=== PATIENT | male | born 1955 | race African-American/Black ===

== ENCOUNTER 2016-11-29 07:33 | Outpatient (CLI) ==
[2016-09-05 07:18] VITALS: BMI 34.2
[2016-11-29 08:11] LABS: BASOPHILS # (AUTO) 0.1 K/uL (0-0.2); EOSINOPHILS # (AUTO) 0.4 K/ul (0.0-0.7); EOSINOPHILS % (AUTO) 4.7 % (0.0-7.0); HEMATOCRIT 26.8 % (42.0-52.0); HEMOGLOBIN 8.6 g/dl (14.0-18.0); IMMATURE GRANULOCYTE % (AUTO) 0.5 % (0.0-5.0); LYMPHOCYTES # (AUTO) 1.3 K/uL (0.60-3.4); LYMPHOCYTES % (AUTO) 16.7 (10.0-50.0); MEAN CORPUSCULAR HEMOGLOBIN 29.2 pg (27.0-31.0); MEAN CORPUSCULAR HGB CONC 32.1 (31.8-35.4); MEAN CORPUSCULAR VOLUME 90.8 fl (80.0-94.0); MONOCYTES # (AUTO) 0.8 K/uL (0.4-2.0); MONOCYTES % (AUTO) 10.1 (0-10); NEUTROPHILS # (AUTO) 5.3 K/ul (2.0-6.9); PLATELET COUNT 242 10^3/uL (140-440); RED BLOOD COUNT 2.95 10^6/ul (4.70-6.10); WHITE BLOOD COUNT 7.89 K/ul (4.2-10.2)
[2016-11-29 08:33] LABS: CHOL/HDL RATIO 3.8 (4.5-6.4)
== END 2016-11-29 07:34 | disposition home or self-care (01) ==
LOC: LAB 07:33 → NONPT 07:34
PROVIDERS: ATTEND Emergency Medicine
DX: E11.9 Type 2 diabetes mellitus without complications (principal); I10 Essential (primary) hypertension; E78.5 Hyperlipidemia, unspecified; N18.9 Chronic kidney disease, unspecified; D64.9 Anemia, unspecified; E55.9 Vitamin D deficiency, unspecified; Z12.5 Encounter for screening for malignant neoplasm of prostate
CPT/HCPCS: 80061; 82607; 83036; 84443; 85025

== ENCOUNTER 2016-12-01 09:45 | Outpatient (CLI) | payer OTHER ==
[2016-09-05 07:18] VITALS: BMI 34.2
[2016-12-01 10:12] LABS: HEMOGLOBIN 8.4 g/dl (14.0-18.0)
== END 2016-12-01 09:46 | disposition home or self-care (01) ==
LOC: NONPT 09:45
PROVIDERS: ATTEND Internal Medicine Nephrology
DX: E11.9 Type 2 diabetes mellitus without complications (principal); I10 Essential (primary) hypertension; E78.5 Hyperlipidemia, unspecified
CPT/HCPCS: 85014; 85018

== ENCOUNTER → 2017-05-26 | Outpatient (CLI) | payer OTHER ==
[2016-09-05 07:18] VITALS: BMI 34.2
== END ==
LOC: AMBL 17:23
PROVIDERS: ATTEND Emergency Medicine
DX: Z99.3 Dependence on wheelchair (principal); Z89.612 Acquired absence of left leg above knee; Z89.611 Acquired absence of right leg above knee

== ENCOUNTER 2017-06-17 12:55 | Emergency (ER) ==
[2017-06-17 13:00] VITALS: BP 138/83; TEMP 99.2; BMI 31.7
--- NOTE | 2017-06-17 13:26 | ED.PDOC ---
General ED Provider: Dr. BRUCE LUCIO Chief Complaint: Non-specific Complaint Stated Complaint: can not hear anything, thinks ears clogged up Time Seen by Physician: 13:22 Mode of Arrival: Walk-In Information Source: Patient Primary Care Provider: LUDWIG HARRIS Nursing and Triage Documentation Reviewed and Agree: Yes EENT Complaint Exam - Ear Complaint/Exam Symptoms Are: Still present Timing: Constant Initial Severity: Mild Current Severity: Mild Character: Reports: Dull pain Aggravating: Reports: None Alleviating: Reports: None Associated Signs and Symptoms: Denies: Ear trauma, Ear swelling, Discharge, Fever, Hearing loss, Bleeding, Sore throat, Headache, URI symptoms, Foreign body sensation, Rash, Pain to external ear, Pain to external face Ear Surgical History: None Vesicles to External Pinna: No Vesicles to Tragus: No TMJ Tenderness: None Mastoid Tenderness: None Tragal Tenderness: None Material in Canal: Present: Cerumen Differential Diagnoses: Cerumen Impaction Review of Systems - Review Of Systems Constitutional: Reports: No symptoms Eyes: Reports: No symptoms Ears, Nose, Mouth, Throat: Reports: Ear pain (clogged up) Respiratory: Reports: No symptoms Cardiac: Reports: No symptoms GI: Reports: No symptoms : Reports: No symptoms Musculoskeletal: Reports: No symptoms Skin: Reports: No symptoms Neurological: Reports: No symptoms Endocrine: Reports: No symptoms Hematologic/Lymphatic: Reports: No symptoms All Other Systems: Reviewed and Negative Past Medical History - Past Medical History Previously Healthy: Yes Endocrine: Reports: DM 2, Hyperthyroid, Dyslipidemia Cardiovascular: Reports: Hypertension, A-Fib Respiratory: Reports: None Hematological: Reports: Anemia Gastrointestinal: Reports: GERD Genitourinary: Reports: CKD (on hd) Neuro/Psych: Reports: None Musculoskeletal: Reports: None Cancer: Reports: None Other Pertinent Past Medical History: Hyponatremia, obesity - Surgical History General Surgical History: Reports: Orthopedic (s/p bilateral above knee amputation), Lap Band, Other (right above knee amputee, shunt to right arm), Unknown - Family History Family History: Reports: Unknown - Social History Smoking Status: Current every day smoker Hx Substance Use: No Alcohol Screening: None Physical Exam - Physical Exam Appearance: Well-appearing, No pain distress, Well-nourished Eyes: BRET, EOMI, Conjunctiva clear ENT: Ears normal, Nose normal, Oropharynx normal, TMs Occluded Respiratory: Airway patent, Breath sounds clear, Breath sounds equal, Respirations nonlabored Cardiovascular: RRR, Pulses normal, No rub, No murmur GI/: Soft, Nontender, No masses, Bowel sounds normal, No Organomegaly Musculoskeletal: Normal strength, ROM intact, No edema, No calf tenderness Skin: Warm, Dry, Normal color Neurological: Sensation intact, Motor intact, Reflexes intact, Cranial nerves intact, Alert, Oriented Psychiatric: Affect appropriate, Mood appropriate Critical Care Note - Critical Care Note Total Time (mins): 0 Course - Course Vital Signs: Temp Pulse Resp BP Pulse Ox 06/17/17 12:55 99.2 F 88 20 138/83 98 Departure - Departure Time of Disposition: 13:30 Disposition: HOME SELF-CARE Discharge Problem: Excess ear wax Qualifiers: Laterality: bilateral Qualifier Code: (H61.23) Impacted cerumen, bilateral Instructions: Cerumen Impaction (ED) Condition: Good Pt referred to PMD for follow-up: Yes Additional Instructions: f/u [facility] please put the debrox 5 ml bid in each ear for 5 days Prescriptions: Carbamide Peroxide Otic [Debrox] 5 drop OT Q12H #1 vial Allergies/Adverse Reactions: Allergies No Known Drug Allergies Adverse Reaction (Verified 09/05/16 07:16) Home Medications: Ambulatory Orders Folic Acid 1 mg PO DAILY 01/31/14 Insulin Regular, Human [Humulin R] 1 unit SQ PRN PRN 01/25/15 Hydrocodone Bit/Acetaminophen [[place] 10-325] 1 each PO Q6HR PRN 01/13/16 Amiodarone HCl [Cordarone] 200 mg PO Q12HR 05/27/16 Aspirin [Aspirin Chewable] 81 mg PO DAILYWM 05/27/16 Atorvastatin Calcium [Lipitor] 5 mg PO BEDTIME 05/27/16 Cholecalciferol (Vitamin D3) [Vitamin D3] 50,000 unit PO MO 05/27/16 Clopidogrel Bisulfate [Plavix] 75 mg PO DAILY 05/27/16 Gabapentin 300 mg PO BEDTIME 05/27/16 Metoprolol Tartrate [Lopressor] 50 mg PO BID 05/27/16 Midodrine HCl [Midodrine] 5 mg PO DAILY 05/27/16 Propylthiouracil 100 mg PO Q12HR 05/27/16 Sennosides/Docusate Sodium [Senna-Docusate Sodium Tablet] 1 each PO BID Amoxicillin 500 mg PO Q8HR #21 tablet 09/05/16 Albuterol Sulfate [Proair Hfa] 2 puff IH PRN PRN 10/16/16 Ondansetron HCl [Zofran Tab] 4 mg PO PRN PRN 10/16/16 Promethazine HCl [Phenergan Tab] 25 mg PO PRN PRN 10/16/16 Carbamide Peroxide Otic [Debrox] 5 drop OT Q12H #1 vial 06/17/17
== END 2017-06-17 14:31 | disposition home or self-care (01) ==
LOC: ED 12:55
DX: H91.90 Unspecified hearing loss, unspecified ear (principal); H92.09 Otalgia, unspecified ear; H61.23 Impacted cerumen, bilateral; F17.210 Nicotine dependence, cigarettes, uncomplicated
CPT/HCPCS: 99282

== ENCOUNTER 2017-07-05 20:24 | Emergency (ER) ==
[2017-07-05 20:31] VITALS: TEMP 0; BMI 39.0
[2017-07-05] MEDS ORDERED: SODIUM BICARBONATE 7.5% IVP PRN (20:49)
[2017-07-05] MEDS: EPINEPHRINE 1:10,000 SYRINGE IV PRN ×3 (20:49→20:56)
--- NOTE | 2017-07-05 21:02 | ED.PDOC ---
Procedures - Intubation Indication: Present: Respiratory Insufficiency (arrest) Time of Intubation: 20:46 Type of Tube Used: Endotracheal Tube Size: 7 Cricoid Pressure Used: No Tube Antonio Used: Yes Position of Tube at Lip: 22 Number of Attempts: 1 Suction Used: No Glidescope Used: No CO2 Detector Used: Yes Lung Sounds Equal Bilaterally: Yes Intubation Complications: Present: No complications Tube Inserted By: Aguila Guadarrama CRNA Conscious Sedation - Pre-op Assessment Weight: 280 lb Surgical History: right above knee amputee, shunt to right arm. 1 CARDIAC STENT AUG 16, 2016. LAP BAND 2005. RIGHT SCROTUM HYDROCELE. GB. LEFT CATARACT REMOVAL - Medical History Past Medical History: Hypertension, Diabetes, Thyroid, Anemia, CHF, A-FIb, COPD , Renal Failure, Arthritis Other History: Hyponatremia, obesity, left total Knee arthroplasty w/revision, SLEEP APNEA
[2017-07-05] MEDS ORDERED: SODIUM CHLORIDE 1,000 ML IV STA (21:14)
[2017-07-05] MEDS ORDERED: PHENYLEPHRINE IVP ONE ×2 (21:15→21:23)
[2017-07-05] MEDS ORDERED: PHENYLEPHRINE IVP STA ×2 (21:28→21:48)
[2017-07-05 21:44] LABS: BASOPHILS # (AUTO) 0.1 K/uL (0-0.2); BASOPHILS % (AUTO) 0.3 % (0.0-3.0); EOSINOPHILS # (AUTO) 0.2 K/ul (0.0-0.7); EOSINOPHILS % (AUTO) 0.9 % (0.0-7.0); HEMATOCRIT 28.5 % (42.0-52.0); HEMOGLOBIN 9.4 g/dl (14.0-18.0); IMMATURE GRANULOCYTE % (AUTO) 9.4 % (0.0-5.0); LYMPHOCYTES # (AUTO) 4.4 K/uL (0.60-3.4); LYMPHOCYTES % (AUTO) 19.4 (10.0-50.0); MEAN CORPUSCULAR HEMOGLOBIN 29.7 pg (27.0-31.0); MEAN CORPUSCULAR VOLUME 90.2 fl (80.0-94.0); MONOCYTES # (AUTO) 0.5 K/uL (0.4-2.0); MONOCYTES % (AUTO) 2.2 (0-10); NEUTROPHILS # (AUTO) 15.5 K/ul (2.0-6.9); NEUTROPHILS % (AUTO) 67.8; PLATELET COUNT 86 10^3/uL (140-440); RED BLOOD COUNT 3.16 10^6/ul (4.70-6.10)
[2017-07-05 21:45] VITALS: BP 42/31
[2017-07-05] MEDS ORDERED: PHENYLEPHRINE ONE (21:48)
--- NOTE | 2017-07-05 21:59 | ED.PDOC ---
General ED Provider: Dr. LORI HINDS-ER Chief Complaint: Cardiac Arrest Stated Complaint: medics report bleeding from av fistula site right arm--they report "half of his blood volume"on the floor--had similar problem a few days ago--bleeding controlled with torniquet right arm Time Seen by Physician: 20:25 Mode of Arrival: Ambulance Information Source: EMT Exam Limitations: Clinical condition [facility] Nursing and Triage Documentation Reviewed and Agree: Yes Trauma/Injury Complaint Exam - Trauma Complaint/Exam Location of Pain or Injury: Reports: RUE Mechanism of Injury: Reports: Alleged non-accidental Symptoms Are: Still present Timing of Treatment: Immediate Initial Severity: Mild Current Severity: Moderate Character: Reports: Dull Aggravating: Reports: None Alleviating: Reports: None Associated Signs and Symptoms: Reports: Lethargy, Bleeding, Significant blood loss. Denies: LOC, Confusion, Memory loss, Vomiting, Bruising, Swelling, Extremity disuse, Painful respiration, Hoarseness, Dysphagia, Hemoptysis Related History: Reports: Similar episode Penetrating Injury Risk Factors: Reports: None Review of Systems - Review Of Systems Constitutional: Reports: Other Eyes: Reports: Other Ears, Nose, Mouth, Throat: Reports: No symptoms Respiratory: Reports: No symptoms Cardiac: Reports: No symptoms GI: Reports: No symptoms : Reports: No symptoms Musculoskeletal: Reports: No symptoms Skin: Reports: No symptoms Neurological: Reports: No symptoms Endocrine: Reports: No symptoms Hematologic/Lymphatic: Reports: Easy bleeding All Other Systems: Reviewed and Negative Past Medical History - Past Medical History Previously Healthy: Yes Endocrine: Reports: DM 2, Hyperthyroid, Dyslipidemia Cardiovascular: Reports: Hypertension, A-Fib Respiratory: Reports: None Hematological: Reports: Anemia Gastrointestinal: Reports: GERD Genitourinary: Reports: CKD (on hd) Neuro/Psych: Reports: None Musculoskeletal: Reports: None Cancer: Reports: None Other Pertinent Past Medical History: Hyponatremia, obesity - Surgical History General Surgical History: Reports: Orthopedic (s/p bilateral above knee amputation), Lap Band, Other (right above knee amputee, shunt to right arm), Unknown - Family History Family History: Reports: Unknown - Social History Smoking Status: Current every day smoker Hx Substance Use: No Alcohol Screening: None Lives: With family Physical Exam - Physical Exam Appearance: Obese Ill-appearing: Severe Eyes: BRET ENT: Ears normal, Nose normal, Oropharynx normal Neck: Supple Respiratory: Airway patent, Breath sounds clear, Breath sounds equal, Respirations nonlabored Cardiovascular: No murmur, Abnormal pulses (pulseless on arrival--cpr in progress) GI/: Soft Musculoskeletal: Limited ROM, Limited strength Skin: Warm Neurological: Unresponsive Psychiatric: Affect appropriate Interpretation - Radiology Interpretation Radiology Interpretation By: Radiologist Radiology Results: Negative Exam Interpreted: Portable CXR Procedures - Intubation Indication: Present: Altered Mental Status Medications: Yes: Succinylcholine Type of Tube Used: Endotracheal Tube Size: 7.5 Cricoid Pressure Used: Yes Tube Antonio Used: Yes Number of Attempts: 1 Suction Used: Yes Glidescope Used: Yes CO2 Detector Used: Yes Lung Sounds Equal Bilaterally: Yes Intubation Complications: Present: No complications Tube Inserted By: r keshia Tube Placement Verified by X-ray: Yes - Additional Procedures Additional Procedures: Other (interosseus line placed by ems) Re-Evaluation - Re-Evaluation Time of Re-Evaluation: 22:34 Status: Improved Vital Signs Stable: No Pain Level: 0 Appearance: NAD Lungs: Clear Skin: Warm and Dry Neuro: Other CV: RRR Physician Notification - Case Discussed Physician Notified: dr [email or web address] 22:30 Time of Notification: 22:34 Critical Care Note - Critical Care Note Total Time (mins): 60 Course - Course Hematology/Chemistry: 07/05/17 21:40 Orders, Labs, Meds: Lab Review 07/05/17 21:40 WBC 22.90 H RBC 3.16 L Hgb 9.4 L Hct 28.5 L MCV 90.2 MCH 29.7 MCHC 33.0 RDW Coeff of Rosie 15.3 H Plt Count 86 L Immature Gran % (Auto) 9.4 H Neut % (Auto) 67.8 Lymph % (Auto) 19.4 [place] % (Auto) 2.2 Eos % (Auto) 0.9 Baso % (Auto) 0.3 Immature Gran # (Auto) 2.2 H Neut # 15.5 H Lymph # 4.4 H Faulkner # 0.5 Eos # 0.2 Baso # 0.1 Orders Category Date Time Status CPR - ED ONLY Stat CARDIO 07/05/17 20:49 Ordered EKG-(ED ONLY) Stat CARDIO 07/05/17 21:17 Ordered VENTILATOR Routine CARDIO 07/05/17 22:25 Ordered TRANSFER TO OUTSIDE FACILITY .TO [facility] 07/05/17 21:59 Active ([place]) WRITE TRANSFER/SBAR NOTE ONCE CARE 07/05/17 21:59 Active DISCHARGE ASSESSMENT ONCE DISCHARGE 07/05/17 21:59 Active WRITE DISCHARGE NOTE ONCE DISCHARGE 07/05/17 21:59 Active ED IV/MEDIPORT/POWERPORT .ONCE EMERGENCY 07/05/17 20:49 Active BLOOD PRODUCT: PACKED RED BLOOD CELLS [PACKED CELLS] LAB 07/05/17 20:51 Ordered Stat CBC W/ AUTO DIFF Stat LAB 07/05/17 21:40 Completed COMPREHENSIVE METABOLIC PANEL Stat LAB 07/05/17 21:17 Ordered CREATINE KINASE Stat LAB 07/05/17 21:17 Ordered TROPONIN I Stat LAB 07/05/17 21:17 Ordered TYPE AND SCREEN Stat LAB 07/05/17 20:51 Ordered 0.9 % Sodium Chloride [Saline Flush] MEDS 07/05/17 20:49 Ordered 1 syr IVF PRN PRN Epinephrine [Epinephrine 1:10,000 Syringe] MEDS 07/05/17 20:49 Ordered 1 mg IV PRN PRN Phenylephrine Inj [Phenylephrine] MEDS 07/05/17 21:48 Discontinued 10 mg .ROUTE .STK-MED ONE Sodium Bicarb 7.5% [Sodium Bicarbonate 7.5%] MEDS 07/05/17 20:49 Ordered 44.6 meq IVP PRN PRN Sodium Chloride 0.9% [Sodium Chloride] 1,000 ml MEDS 07/05/17 21:14 Discontinued IV BOLUS CHEST, 1V AP ONLY Stat RADS 07/05/17 21:00 Ordered Medications Generic Name Dose Route Start Last Admin Trade Name Freq PRN Reason Stop Dose Admin Epinephrine HCl 1 mg 07/05/17 20:49 07/05/17 20:56 Epinephrine 1:10,000 Syringe IV 1 mg PRN PRN Administration DIRECTED BY PHYSICIAN-CODE Sodium Bicarbonate 44.6 meq 07/05/17 20:49 07/05/17 20:51 Sodium Bicarbonate 7.5% IVP 44.6 meq PRN PRN Administration DIRECTED BY PHYSICIAN-CODE Sodium Chloride 1 syr 07/05/17 20:49 Saline Flush IVF PRN PRN To flush IV Discontinued Medications Generic Name Dose Route Start Last Admin Trade Name Freq PRN Reason Stop Dose Admin Sodium Chloride 1,000 mls @ 1,000 mls/hr 07/05/17 21:14 07/05/17 21:00 Sodium Chloride IV 07/05/17 22:13 1,000 mls/hr BOLUS STA Administration Vital Signs: Temp Pulse Resp BP Pulse Ox 07/05/17 21:44 42/31 L 07/05/17 21:22 98/46 L 07/05/17 21:06 120 H 20 52/00 L 07/05/17 20:24 0 F L 0 L 0 L 0/0 L 0 L Departure - Departure Time of Disposition: 21:57 Disposition: TSF SHORT-TRM HOSP Discharge Problem: Hypovolemic shock Instructions: Hypotension (ED) Condition: Serious Pt referred to PMD for follow-up: Yes Allergies/Adverse Reactions: Allergies No Known Drug Allergies Adverse Reaction (Verified 09/05/16 07:16) Home Medications: Ambulatory Orders Folic Acid 1 mg PO DAILY 01/31/14 Insulin Regular, Human [Humulin R] 1 unit SQ PRN PRN 01/25/15 Hydrocodone Bit/Acetaminophen [[place] 10-325] 1 each PO Q6HR PRN 01/13/16 Amiodarone HCl [Cordarone] 200 mg PO Q12HR 05/27/16 Aspirin [Aspirin Chewable] 81 mg PO DAILYWM 05/27/16 Atorvastatin Calcium [Lipitor] 5 mg PO BEDTIME 05/27/16 Cholecalciferol (Vitamin D3) [Vitamin D3] 50,000 unit PO MO 05/27/16 Clopidogrel Bisulfate [Plavix] 75 mg PO DAILY 05/27/16 Gabapentin 300 mg PO BEDTIME 05/27/16 Metoprolol Tartrate [Lopressor] 50 mg PO BID 05/27/16 Midodrine HCl [Midodrine] 5 mg PO DAILY 05/27/16 Propylthiouracil 100 mg PO Q12HR 05/27/16 Sennosides/Docusate Sodium [Senna-Docusate Sodium Tablet] 1 each PO BID Amoxicillin 500 mg PO Q8HR #21 tablet 09/05/16 Albuterol Sulfate [Proair Hfa] 2 puff IH PRN PRN 10/16/16 Ondansetron HCl [Zofran Tab] 4 mg PO PRN PRN 10/16/16 Promethazine HCl [Phenergan Tab] 25 mg PO PRN PRN 10/16/16 Carbamide Peroxide Otic [Debrox] 5 drop OT Q12H #1 vial 06/17/17 Transfer Form Completed: Yes Disposition Discussed With: Family
--- NOTE | 2017-07-06 07:36 | DI ---
EXAM: Chest one view, frontal view only. HISTORY: Endotracheal tube placement. COMPARISON: 01/12/2017. FINDINGS: Endotracheal tube tip is just below the level of the clavicular heads, above the jason b y approximately 3.4 cm. The heart size is normal. There is no pulmonary vascular congestion. The lungs are clear. No pleural effusion or pneumothorax is seen. No acute osseous abnormality is iden tified. External pacing pads noted. IMPRESSION: Endotracheal tube in satisfactory position.
== END 2017-07-05 22:20 | disposition short-term general hospital (02) ==
LOC: ED 20:24
DX: I46.9 Cardiac arrest, cause unspecified (principal); R57.1 Hypovolemic shock; T82.838A Hemorrhage due to vascular prosthetic devices, implants and grafts, initial encounter; I12.9 Hypertensive chronic kidney disease with stage 1 through stage 4 chronic kidney disease, or unspecified chronic kidney disease; E11.22 Type 2 diabetes mellitus with diabetic chronic kidney disease; N18.9 Chronic kidney disease, unspecified; D63.1 Anemia in chronic kidney disease; E78.5 Hyperlipidemia, unspecified; E05.90 Thyrotoxicosis, unspecified without thyrotoxic crisis or storm; E87.1 Hypo-osmolality and hyponatremia; E66.9 Obesity, unspecified; F17.210 Nicotine dependence, cigarettes, uncomplicated; Z79.4 Long term (current) use of insulin; Z79.899 Other long term (current) drug therapy
CPT/HCPCS: 31500; 36415; 36430; 85025; 86850; 86900; 86922; 93005; 93010; 96361; 96374; 96375; 99291; 99292